=== PATIENT | female | born 1985 | race Caucasian/White ===

== ENCOUNTER → 2023-10-31 | Outpatient (REF) | payer SELFPAY | LOC: M LAB REF 11:24 | PROVIDERS: ATTEND Student in an Organized Health Care Education/Training Program | DX: R30.0 Dysuria (principal) ==

== ENCOUNTER 2024-08-08 14:27 | Emergency (ER) | payer OTHER ==
[~2024-08-08] VITALS: Ht 157.5 cm; Wt 89.6 kg
[2024-08-08 16:20] LABS: BASO % 0.2 % (0.0-1.0); EOS # 0.1 10^3/uL (0.0-0.5); EOS % 0.3 % (0.0-3.0); HEMATOCRIT 40.6 % (36.0-47.0); HEMOGLOBIN 13.6 g/dl (12.0-15.5); LYMPH # 3.3 10^3/uL (1.5-5.0); MEAN CORPUSCULAR HEMOGLOBIN 29.6 pg (27.0-33.0); MEAN CORPUSCULAR HGB CONC 33.5 g/dl (32.0-36.5); MEAN CORPUSCULAR VOLUME 88.5 fl (80.0-96.0); MONO # 0.9 10^3/uL (0.0-0.8); MONO % 6.1 % (2.0-8.0); NEUTROPHILS # 10.8 10^3/uL (1.5-8.5); PLATELET COUNT, AUTOMATED 339 10^3/uL (150-450); RED BLOOD COUNT 4.59 10^6/uL (4.00-5.40); WHITE BLOOD COUNT 15.2 10^3/uL (4.0-10.0)
[2024-08-08 16:29] LABS: LIPASE 27 U/L (12-53)
[2024-08-08 16:32] LABS: ALBUMIN 3.6 G/DL (3.2-5.2); ALKALINE PHOSPHATASE 72 U/L (35-104); ALT/SGPT 29 U/L (7.0-40); AST/SGOT 33 U/L (<34); BILIRUBIN,DIRECT 0.1 MG/DL (<0.4); BILIRUBIN,TOTAL 0.5 MG/DL (0.3-1.2); BLOOD UREA NITROGEN 8 MG/DL (9-23); CARBON DIOXIDE LEVEL 25 MMOL/L (20-31); CHLORIDE LEVEL 104 MMOL/L (98-107); CREATININE FOR GFR 0.69 MG/DL (0.55-1.30); GLOMERULAR FILTRATION RATE > 60.0 (>60); GLUCOSE, FASTING 78 MG/DL (60-100); POTASSIUM SERUM 4.3 MMOL/L (3.5-5.1); SODIUM LEVEL 139 MMOL/L (136-145); TOTAL PROTEIN 7.3 G/DL (5.7-8.2)
[2024-08-08 16:38] LABS: HCG, SERUM QUALITATIVE NEGATIVE (NEGATIVE)
[2024-08-08 16:56] LABS: KETONE, URINE AUTO RFX NEGATIVE (NEGATIVE); LEUKOCYTE ESTERASE UR AUTO RFX NEGATIVE (NEGATIVE); NITRITE, URINE AUTO RFX NEGATIVE (NEGATIVE)
[2024-08-08] MEDS: IBUPROFEN 600MG TAB PO ONE (17:18)
[2024-08-08] MEDS: metroNIDAZOLE (FLAGYL) 500MG TABLET PO ONE (20:17)
[2024-08-08] MEDS: CIPROFLOXACIN 500MG TABLET PO ONE (20:17)
[2024-08-08 21:34] VITALS: BP 138/90; TEMP 99; O2SAT 99
[2024-08-08] MEDS ORDERED: CIPR-249 PO (21:38)
[2024-08-08] MEDS ORDERED: METR-265 PO (21:38)
== END 2024-08-08 21:36 | disposition home or self-care (01) ==
LOC: M ED 14:27
DX: K57.32 Diverticulitis of large intestine without perforation or abscess without bleeding (principal); F32.A Depression, unspecified; Z91.89 Other specified personal risk factors, not elsewhere classified